=== PATIENT | female | born 1950 | race Caucasian/White ===

== ENCOUNTER 2019-02-05 08:10 | Inpatient (IN) ==
--- NOTE | 2019-01-07 14:54 | PAT Medication Instructions ---
Medication Instructions Date of Service January 07, 2019 Home Medications Pro Air 1 puff INHALATION UD PRN alendronate [Fosamax] 70 mg PO WK alprazolam [Xanax] 0.25 mg PO BID cyanocobalamin (vitamin B-12) [Vitamin B-12] 1,000 mcg PO QAM duloxetine [Cymbalta] 60 mg PO HS furosemide 40 mg PO QAM lovastatin 20 mg PO HS pramipexole [Mirapex] 1 mg PO QAM pramipexole [Mirapex] 2 mg PO HS spironolactone 25 mg PO QAM Continue as directed alendronate [Fosamax] 70 mg PO WK STOP taking 24 hours before surgery pramipexole [Mirapex] 1 mg PO QAM pramipexole [Mirapex] 2 mg PO HS DO NOT take the morning of surgery cyanocobalamin (vitamin B-12) [Vitamin B-12] 1,000 mcg PO QAM furosemide 40 mg PO QAM spironolactone 25 mg PO QAM Take morning of surgery With a small sip of water, OTHERWISE NOTHING TO EAT OR DRINK AFTER MIDNIGHT: Pro Air 1 puff INHALATION UD PRN (if needed) alprazolam [Xanax] 0.25 mg PO BID Take evening before surgery Pro Air 1 puff INHALATION UD PRN (if needed) alprazolam [Xanax] 0.25 mg PO BID duloxetine [Cymbalta] 60 mg PO HS lovastatin 20 mg PO HS Other Notes If you have any questions please call us at [phone] or [phone] or [phone] or [phone]
--- NOTE | 2019-01-08 12:47 | Anesthesiology Consultation ---
Date of Service January 08, 2019 Assessment & Plan (1) Encounter for pre-operative examination: Cardio: 01/14/19: "There is no contraindication to her proceeding from a cardiac perspective and she would be considered low to intermediate risk." Chart Review Chart Review: Acceptable Risk for Surgery (pending surgeon-ordered PCP clearance scheduled 01/21 (MAXWELL Morales)) and Patient seen in Pre Admission Testing Teaching & Discussion Pre-Anesthesia Teaching/Discussion Notes: Instructed NPO after midnight before surgery,except medications with 15 cc of water. Medication instructions provided according to the PAT guidelines. History Surgery Operation Date: 02/05/19 09:15 Proposed Procedures p Left Total Knee Arthroplasty - Tom Barragan, Height/Weight Height: 5 ft 3 in Weight: 94.7 kg Allergies Allergy/AdvReac Type Severity Reaction Status Date / Time latex Allergy Unknown BURNING, Verified 01/08/19 14:36 PRURITIS oxycodone Allergy Unknown PRURITIS Verified 01/08/19 14:36 Medications Home Medications Medication Instructions Recorded Confirmed Last Taken Pro Air 1 puff INHALATION UD PRN 01/01/19 01/01/19 Unknown alendronate [Fosamax] 70 mg PO WK 01/01/19 01/01/19 12/30/18 alprazolam [Xanax] 0.25 mg PO BID 01/01/19 01/01/19 01/01/19 cyanocobalamin (vitamin B-12) 1,000 mcg PO QAM 01/01/19 01/01/19 01/01/19 [Vitamin B-12] duloxetine [Cymbalta] 60 mg PO HS 01/01/19 01/01/19 12/31/18 furosemide 40 mg PO QAM 01/01/19 01/01/19 01/01/19 lovastatin 20 mg PO HS 01/01/19 01/01/19 12/31/18 pramipexole [Mirapex] 1 mg PO QAM 01/01/19 01/01/19 01/01/19 pramipexole [Mirapex] 2 mg PO HS 01/01/19 01/01/19 12/31/18 spironolactone 25 mg PO QAM 01/01/19 01/01/19 01/01/19 Past Medical History Medical History Obesity CAD (coronary artery disease) non-obstructive CAD by 2011 cardiac cath Age related osteoporosis Anxiety COPD (chronic obstructive pulmonary disease) High cholesterol Restless leg syndrome Thyroid nodule under surveillance Exercise / Class Metabolic Activity II 4-5 Yardwork/Stairs/Walk up hill (+ knee pain) Past Family History Family History Mother Family history of lung cancer Past Surgical History Surgical History History of ankle surgery right (2/2 crush injury) with multiple revisions History of arthroscopy of left knee History of cardiac cath 4+ years ago= non-obstructive CAD; no stents History of carpal tunnel surgery of left wrist History of carpal tunnel surgery of right wrist History of cholecystectomy History of colonoscopy History of hysterectomy History of lumbar fusion AND REVISION History of neck surgery CERVICAL SPINE FUSED History of toe surgery RIGHT HAMMER TOE AND BUNION REPAIR History of toe surgery left foot "nerve" surgery Status post insertion of spinal cord stimulator Patient will bring remote AM DOS/OR made aware Past Anesthesia History No Hx of Anesthesia Complications and No Family Hx of Anesthesia Complications Patient anxious RE: anesthesia History of PONV No Hx of PONV and No Hx of Motion Sickness Social History Smoking Status: Current every day smoker tobacco type: cigarettes Smoking cigarettes per day: 0.5 PPD x 30+ years Do You Dip or Chew Tobacco: No Hx Alcohol Use: No Hx Substance Use: No substance use type: does not use Review of Systems Patient denies chest pain, shortness of breath, dyspnea on exertion, reflux, cough, wheezing, palpitations. Physical Exam Vital Signs VITALS BP 111/68 P 73 TEMP 98.3 SP02 93%RA RESP 20 PHYSICAL Full neck and c-spine range of motion. Full TMJ range of motion. TMD 4 finger breaths Mallampati Score 2 Dentition: edentulous, full dentures upper/lower Lungs: clear throughout to auscultation Cardiac: regular rate and rhythm, no murmurs noted Spine: normal Carotid arteries: negative bruit Extremities: no edema Testing Laboratory Results PT 9.8 Seconds (9.0-12.0) 01/08/19 13:05 INR 1.0 (0.9-1.1) 01/08/19 13:05 APTT 27.5 Seconds (21.0-31.0) 01/08/19 13:05 Hemoglobin A1c 6.2 % (4.5-5.6) H 01/08/19 13:05 Urine Color Yellow 01/08/19 13:05 Urine Appearance Clear (Clear) 01/08/19 13:05 Urine pH 6.0 (4.5-7.5) 01/08/19 13:05 Ur Specific Warren 1.013 (1.000-1.030) 01/08/19 13:05 Urine Protein Negative (Negative) 01/08/19 13:05 Urine Glucose (UA) Negative (Negative) 01/08/19 13:05 Urine Ketones Negative (Negative) 01/08/19 13:05 Urine Nitrite Negative (Negative) 01/08/19 13:05 Ur Leukocyte Esterase Negative (Negative) 01/08/19 13:05 Blood Type O Positive 01/08/19 13:05 Antibody Screen NEGATIVE 01/08/19 13:05 01/08/19 13:05 Urine Culture - Final Urine,Clean Catch Lactobacillus species 12/17/18 WBC 9.1 H/H 12.9/38.6 PLATELETS 287 SODIUM 138 POTASSIUM 4.1 CHLORIDE 103 CO2 30 BUN 20 CREATININE 0.8 GLUCOSE 128 Electrocardiogram Date: 01/08/19 Findings: + NSR @ (70) Chest X-Ray Date: 01/08/19 The PA view is degraded by apical lordotic positioning. The heart is top normal in size and there is atherosclerotic calcification of the thoracic aorta. Emphysema and chronic interstitial thickening are similar to previous. No airspace consolidation or pleural effusion is identified. There is bibasilar scarring/atelectasis. Fusion hardware is noted in the lower cervical spine. Intrathecal leads project over the lower thoracic region. Surgical clips are seen in the upper abdomen. Emphysematous change with no active disease in the chest. Echocardiogram Date: 04/02/18 "LVEF 57%, no segmental wall motion abnormalities, overall normal valvular function." per 01/14/19 cardio office visit note; unable to obtain official report Stress Test Date: 10/23/13 Type: DSE Stress ECHO negative for inducible ischemia. Equivocal EKG changes. Occasional PVC's with infusion. LVEF 60-65%. Grade I DD. Mild AV sclerosis. No significant valvular disease. 104% MPHR.
--- NOTE | 2019-01-08 13:52 | XRay Report ---
TWO VIEW CHEST CLINICAL HISTORY: Preoperative examination. FINDINGS: PA and lateral chest radiographs are compared to study dated 10/21/2014. The PA view is degr aded by apical lordotic positioning. The heart is top normal in size and there is atherosclerotic suresh cification of the thoracic aorta. Emphysema and chronic interstitial thickening are similar to previo us. No airspace consolidation or pleural effusion is identified. There is bibasilar scarring/atelecta sis. There is no pneumothorax. The skeletal structures are osteopenic. The bony thorax appears intact . Fusion hardware is noted in the lower cervical spine. Intrathecal leads project over the lower thor acic region. Surgical clips are seen in the upper abdomen. IMPRESSION: Emphysematous change with no active disease in the chest. Electronically signed by: Conrado Alfonso M.D. 01/08/2019 1:50 PM
[2019-01-08 14:50] LABS: Partial Thromboplastin Time 27.5 Seconds (21.0-31.0); Prothrombin Time 9.8 Seconds (9.0-12.0)
[2019-01-08 15:05] LABS: Appearance Urine Clear (Clear); Bilirubin Urine Negative (Negative); Blood Urine Negative (Negative); Color Urine Yellow; Glucose Urine UA Negative (Negative); Ketones Urine Negative (Negative); Leukocyte Esterase Urine Negative (Negative); Nitrite Urine Negative (Negative); Protein Urine Negative (Negative); Specific Gravity Urine 1.013 (1.000-1.030); Urobilinogen Urine Negative (Negative)
[2019-01-09 05:58] LABS: Estimated Average Glucose 131 mg/dl; Hemoglobin A1C 6.2 % (4.5-5.6)
--- NOTE | 2019-02-04 18:08 | History & Physical Report ---
Date of Service February 04, 2019 Assessment & Plan (1) Degenerative joint disease of left knee: I have indicated the patient for left total knee replacement. The risks, benefits and complications of surgery were explained to the patient which include but not limited to infection, acute blood loss, DVT/PE, injury to nerves, vessels, bone, soft tissue, arthrofibrosis, chronic pain, failure of the prosthesis, knee dislocation, leg length discrepancy, need for additional surgery, cardiac and pulmonary events and . The patient wished to proceed with surgery and informed consent was obtained at this time. We will plan for ASA BID post-operatively for DVT prophylaxis. Upon discharge the patient will be discharged home with home health services. Appropriate clearances by PCP were obtained. History of Present Illness Chief Complaint: Left knee pain/djd Primary Care Provider: Tucker Morales The patient is a 68 year old female who presents with complaints of severe left knee pain and DJD. The patient has failed outpatient conservative treatments to this point which included NSAIDs, corticosteroid and RANGEL injections, PT and a h ome exercise/walking program. The patient's pain and limited function have progressed to the point where they severely hinder their activities of daily living and they no longer tolerate exercise programs. They are requesting to proceed with total knee replacement surgery. Allergies Allergy/AdvReac Type Severity Reaction Status Date / Time oxycodone Allergy Severe PRURITIS Verified 02/05/19 09:22 latex Allergy Unknown BURNING, Verified 02/05/19 09:22 PRURITIS Home Medications Home Medications Medication Instructions Recorded Confirmed Type Pro Air 1 puff INHALATION UD PRN 01/01/19 02/05/19 History alendronate [Fosamax] 70 mg PO WK 01/01/19 01/01/19 History alprazolam [Xanax] 0.25 mg PO BID 01/01/19 01/01/19 History cyanocobalamin (vitamin B-12) 1,000 mcg PO QAM 01/01/19 01/01/19 History [Vitamin B-12] duloxetine [Cymbalta] 60 mg PO HS 01/01/19 01/01/19 History furosemide 40 mg PO QAM 01/01/19 01/01/19 History lovastatin 20 mg PO HS 01/01/19 01/01/19 History pramipexole [Mirapex] 1 mg PO QAM 01/01/19 01/01/19 History pramipexole [Mirapex] 2 mg PO HS 01/01/19 01/01/19 History spironolactone 25 mg PO QAM 01/01/19 01/01/19 History Past Med/Surg History Medical History Obesity CAD (coronary artery disease) non-obstructive CAD by 2011 cardiac cath Age related osteoporosis Anxiety COPD (chronic obstructive pulmonary disease) High cholesterol Restless leg syndrome Thyroid nodule under surveillance Surgical History History of ankle surgery left (2/2 crush injury) with multiple revisions History of arthroscopy of left knee History of cardiac cath 4+ years ago= non-obstructive CAD; no stents History of carpal tunnel surgery of left wrist History of carpal tunnel surgery of right wrist History of cholecystectomy History of colonoscopy History of hysterectomy History of lumbar fusion AND REVISION History of neck surgery CERVICAL SPINE FUSED History of toe surgery RIGHT HAMMER TOE AND BUNION REPAIR History of toe surgery left foot "nerve" surgery Status post insertion of spinal cord stimulator Patient will bring remote AM DOS/OR made aware Family History Mother Family history of lung cancer Social History Preferred Language: Uzbek Communication Ability: Effective Antique Dealer Required: No Beliefs That Will Affect Care: None Current Living Situation: Alone Other Information That Helps Us Care for You: No Feels Safe at Home: Yes Smoking Status: Current every day smoker Tobacco Type: cigarettes ; Cigarettes Per Day: 0.5 PPD x 30+ years ; Do You Dip or Chew Tobacco: No ; Hx Alcohol Use: No Hx Substance Use: No Review of Systems Review of Systems: All systems reviewed & are unremarkable except as noted in HPI & below Constitutional: as per Subjective / HPI Physical Exam Physical Exam: LLE NVSI +EHL/FHL/TA/GS SILT grossly, +2 DP pulse, compartments soft NT, limited painful ROM 0-120, +crepitus. Constitutional: WD/WN, vitals as above Eyes: PERRL, conjunctivae normal, anicteric sclerae ENMT: external ear and nose normal, oropharynx normal Neck: trachea midline, no thyromegaly Respiratory: normal respiratory effort, lungs clear to auscultation Cardiovascular: RRR, no murmur, no edema Gastrointestinal (Abdomen): normal bowel sounds, soft, nontender, no hepatosplenomegaly Musculoskeletal: no cyanosis or clubbing, extremities motor strength 5/5 Skin: no rashes, warm and dry Neurologic: patellar DTR's 2+ bilat, sensation intact Psychiatric: A+Ox3, euthymic affect Lymphatic: no cervical or axillary lymphadenopathy Results & Data Diagnostic Findings Multiple views of the knee demonstrates severe tricompartmental DJD with complete loss of the medial and narrowing of the patellowfemoral joint space. +osteophytes, +sclerosis, +subchondral cysts.
[~2019-02-05 08:10] MED LIST: ACETAMINOPHEN 500 MG TAB PO SCH; BUPIVACAINE 0.5 % 5 MG/1 ML PF 10ML VIAL ONE; CEFAZOLIN 2000MG 2,000 MG/15 ML SYR IV SCH; CeleBREX 200 MG CAP PO SCH; FAMOTIDINE 20 MG TAB PO SCH; GABAPENTIN 300 MG CAP PO SCH; LR 500ML BOLUS, THEN 15ML/HR IV SCH; METOCLOPRAMIDE HCL 10 MG TABLET PO SCH; ROPIVACAINE 0.5% 5 MG/ML 30 ML VIAL ONE; ROPIVACAINE 0.5% HCL/PF 150 MG, BUPIVACAINE 0.5% MPF 30 ML, EPINEPHrine 30MG/30ML (OR U... INFIL SCH; TRANEXAMIC ACID 1,000 MG **IV Intra-op IV SCH; TRANEXAMIC ACID 1,000 MG **IV Pre-op IV SCH; dexAMETHasone 4 MG TAB PO SCH
[2019-02-05] MEDS ORDERED: MIDAZOLAM HCL 1 MG/ML 2ML VIAL ONE (09:55)
[2019-02-05] MEDS ORDERED: fentaNYL citrate 100 MCG/2 ML VIAL ONE ×2 (09:55→11:27)
[2019-02-05] MEDS ORDERED: ORTHO JOINT ANESTHETIC ONE (10:23)
[2019-02-05] MEDS ORDERED: BACITRACIN INJ 50,000 UNIT VIAL ONE (10:23)
[2019-02-05] MEDS ORDERED: NEOSTIGMINE METHYLSULFATE 5 MG/5 ML SYR ONE (10:51)
[2019-02-05] MEDS ORDERED: ROCURONIUM BROMIDE 10 MG/ML 5 ML VIAL ONE (10:51)
[2019-02-05] MEDS ORDERED: ONDANSETRON INJ 2 MG/ML 2 ML VIAL ONE (10:51)
[2019-02-05] MEDS ORDERED: PROPOFOL IV EMULSION 10 MG/ML 20 ML VIAL IV ONE (10:51)
[2019-02-05] MEDS ORDERED: LIDOCAINE HCL 2% 2 ML VIAL/AMP(20MG/ML) INFIL ONE (10:51)
[2019-02-05] MEDS ORDERED: GLYCOPYRROLATE 0.2 MG/ML VIAL ONE (10:51)
[2019-02-05] MEDS ORDERED: ATROPINE SULFATE 0.1 MG/ML 10ML SYR IV PRN (11:03)
[2019-02-05] MEDS ORDERED: ePHEDrine sulfate 50 MG/ML AMP IV PRN (11:03)
[2019-02-05] MEDS ORDERED: ONDANSETRON INJ 2 MG/ML 2 ML VIAL IV PRN ×2 (11:03→15:21)
[2019-02-05] MEDS ORDERED: fentaNYL citrate 100 MCG/2 ML VIAL IV PRN (11:03)
--- NOTE | 2019-02-05 11:26 | History & Physical Bridge Note ---
Date of Service February 05, 2019 History & Physical Bridge Note I have examined the patient, reviewed the History & Physical and in the interval since the performance of the History & Physical I have noted the following changes of clinical significance: no changes noted
[2019-02-05] MEDS ORDERED: HYDROmorphone INJ 2 MG/ML SYR/VIAL ONE (12:27)
[2019-02-05] MEDS ORDERED: ALBUT/IPRATROP 3MG/0.5MG NEB 3 ML VIAL INH PRN (12:57)
--- NOTE | 2019-02-05 13:37 | Post Operative Brief Note ---
Immediate Post Op Note v1 Date of Surgery February 05, 2019 Pre & Post Diagnosis Operation Date: 02/05/19 11:25 Pre-Op Diagnosis: LEFT KNEE OSTEOARTHRITIS Post-Op Diagnosis: LEFT KNEE OSTEOARTHRITIS Procedure Operation Date: 02/05/19 11:25 Actual Procedures p Left Total Knee Arthroplasty Cemented(Left) - Tom Barragan DO Surgeon Tom Barragan DO Stock Control Supervisor Amauri Osorio Estimated Blood Loss 50 Findings Consistent with Post-Op Diagnosis Fluids 700 cc LR Specimens Distal femor and proximal tibia bone fragments Anesthesia Type General Regional Complications none Disposition Disposition: Recovery Room Overlapping Procedure I was present for: the critical portions of procedure. I was immediately available: during the entire case. Back up surgeon: was not required during procedure.
[2019-02-05] MEDS ORDERED: ESMOLOL HCL INJ 10 MG/ML 10ML VIAL IV ONE (13:43)
--- NOTE | 2019-02-05 13:52 | Operative Report ---
Post Operative Report Pre & Post Diagnosis Operation Date: 02/05/19 11:25 Pre-Op Diagnosis: LEFT KNEE OSTEOARTHRITIS Post-Op Diagnosis: LEFT KNEE OSTEOARTHRITIS Procedure Operation Date: 02/05/19 11:25 Actual Procedures p Left Total Knee Arthroplasty Cemented(Left) - Tom Barragan DO Surgeon Tom Barragan DO Environmental Services Manager Amauri Osorio Estimated Blood Loss 50 Findings Consistent with Post-Op Diagnosis Fluids 700 cc LR Specimens Proximal tibia and distal femur bone fragments Anesthesia Type General Regional Complications none Disposition Disposition: Recovery Room Indications The patient is a 68-year-old female presents with long history of severe left knee tricompartmental DJD and failed outpatient conservative treatments including NSAIDs, bracing, injections and home walking/exercise program. The patient's symptoms have progressed to the point where it has been difficult to perform normal activities of daily living. I have indicated the patient for a left total knee arthroplasty, the risks and benefits and complications of the procedure include but are not limited to infection bleeding damage to bone, nerves, vessels, surrounding soft tissue, blood clots, loss of function, leg length discrepancy, dislocation, failure of the components, need for additional surgery and . The patient wished to proceed with surgery at this time and informed consent was obtained. Appropriate clearances were obtained. Description of Procedure COMPONENTS USED: Uri persona knee system: Femur size 9, Tibia size F tibial articulating surface 14 CPS, Patella 29 mm Following induction of general/regional anesthesia, a tourniquet was applied to the proximal aspect of the thigh and the patient's left leg was prepped and draped in the usual sterile manner. A timeout was performed, patient identified and site avelino confirmed. Appropriate pre-operative IV antibiotics were given. The limb was exsanguinated with an Esmarch bandage and tourniquet was inflated to 300 mmHg. A longitudinal midline incision was made over the anterior knee. Subcutaneous tissue was sharply dissected down to fascia. Electrocautery was used for hemostasis. Next a parapatellar arthrotomy was performed. Patella was everted and the knee was flexed. A Yañez retractor was used to expose the synovium above on the anterior aspect of the femur and removed down to bone. Next, the anterior fat pad was removed to aid in visualization. The medial face of the tibia was cleared of soft tissue first with a Bovie and a reed elevator. This tissue was retracted posteriorly using a blunt Hohmann. Next, the extra-medullary tibial cutting guide was placed to the anterior aspect of the tibia. The tibia resection level was set taking 2mm from the defective tibial condyle. Resection depth was once again confirmed with rubén wing. The medial and lateral collateral ligament was protected with two Hohmann retractors. The tibia guide was removed and proximal tibial bone fragment removed utilizing straight osteotome, electrocautery and Tom. Next, the distal femur intramedullary canal was accessed utilizing the step drill. The intramedullary distal femur cutting guide was placed into the canal and pinned into place. The distal femur was cut on the +0 5 degree setting. Next the cutting guide was removed and the femur was sized. Care was taken to ensure appropriate barber stylist all rotation and 3 degree holes were drilled. A size 9 4-in-1 cutting block was placed on the distal end of the femur and secured into place with two short headed screws. Two bent Hohmann retractors were placed to protect the medial and lateral collateral ligaments. The oscillating saw was used to cut anterior, posterior, anterior chamfer and posterior chamfer. The four and one cutting block was removed and bone fragments excised. Laminar pi/senior research associate was placed laterally and the ACL and PCL were removed followed by the medial meniscus and posterior medial osteophytes. Aquamantys was utilized for any posterior medial bleeders and Orthomix injected into the posterior medial capsule. A laminar pi/senior research associate was then placed in the medial compartment and the lateral meniscus and posterior osteophytes were removed. Aquamantys was utilized for any posterior lateral bleeders and Orthomix injected into the posterior lateral capsule. Next, drop nusrat and spacer block were placed with the leg in flexion and extension to assess alignment and flexion/extension gaps. Next, the proximal tibia was assessed and two bent Hohmans were placed medial and lateral to aid in visualization. The appropriate tibia size and rotation was selected and a size F tibial plate was pinned into place with appropriate rotation. Preparation of the tibia was completed utilizing the matching tibial drill and broach. I then turned my attention back to the distal femur in a trial femoral component was impacted into place. Appropriate femoral width was assessed and selected. Next the femur PS box cut guide was placed and cut made with the reciprocal saw and the PS box provisional placed. A trial size 12 CPS tibia articular tray was placed and varus-valgus balance assessed in 0 degrees of extension and 30, 60 and 90 degrees of flexion. A final tibial articular surface size 14 CPS was chosen. Assess was gained to the patella and caliper utilized to measure width. The patella reamer was utilized and remaining bone removed with oscillating saw. A size 29 patella button was selected and the patella pegs drilled. Trial patella button was placed and tracking was assessed. The knee was found to be well balanced, well aligned with excellent patella tracking. The trials were removed and final components were obtained and assembled. The knee was irrigated copiously with sterile saline solution mixed with bacitracin. Access to the proximal tibia was once again obtained utilizing to the Hohmans and the proximal tibia and distal femur were dried with lap sponges. The final components were cemented into place and all excess cement was removed. A trial tibial articular surface was placed while cemented hardened. Knee stability was once again assessed and the final component inserted. A Betadine soak was performed. After 3 minutes, the hip was once more irrigated with copious sterile saline solution with bacitracin. The knee was injected with the remaining Orthomix which includes a combination of Ropivicaine 0.5% 150mg, Bupivicaine 0.5%/Epinephrine 1:200,000 30ml, Toradol 30mg, Dexamethasone 4mg, Ketamine 10mg, Clonidine 100mcg and NSS 30ml solution. The capsulotomy was closed with #1 Vicryl followed by subcutaneous closure with 2-0 Vicryl suture and a 3-0 V-lock suture. Skin closure was performed using Prineo dressing followed by Tab, 4 x 4s and franck wrap. Tourniquet was deflated at 107 minutes. The patient tolerated the procedure well and was taken to the PACU in stable condition. Due to the complex nature of the procedure, the entire surgery was performed with the operational assistance of Amauri Osorio PA-C. The assistant corporation counsel, under direct supervision, was involved in the actual performance of all aspects of the surgical procedure including patient positioning, hemostasis, tissue retraction, instrument management and wound closure. I attest to the content of the Intraoperative Record and any orders documented therein. Any exceptions are noted below.
--- NOTE | 2019-02-05 14:48 | XRay Report ---
XR knee LT 2V routine CLINICAL HISTORY: 68 years-old Female presenting with Surgical Post Op. TECHNIQUE: Frontal and lateral views of the left knee were obtained. COMPARISON: None. FINDINGS: Postsurgical changes of total left knee arthroplasty with patellar resurfacing. Expected intra-articu lar and soft tissue emphysema. No periprosthetic fracture. Trace lucency subjacent to the lateral tib ial plateau component measuring less than 2 mm, which may be within the expected range of normal and the postsurgical setting. No malalignment. IMPRESSION: Postsurgical changes of total left knee arthroplasty with patellar resurfacing. Electronically signed by: Gavino Le M.D. 02/05/2019 2:46 PM
--- NOTE | 2019-02-05 14:58 | Anesthesiology Progress Note ---
Date of Service February 05, 2019 Anesthesia Post Procedure Vital Signs Vital Signs: Temp Pulse Pulse Resp BP Pulse Ox 02/05/19 14:45 36.6 C 56 L 20 110/62 95 02/05/19 14:35 36.3 C L 63 13 120/67 96 02/05/19 14:25 36.3 C L 59 L 10 L 112/57 L 90 02/05/19 14:17 36.3 C L 74 14 114/69 96 02/05/19 09:26 36.8 C 88 18 109/57 L 98 Pain Intensity Left Knee: Pain Intensity: 0 Transfer of Care Handoff Completed per policy Notes Mental Status: alert / awake / arousable and participated in evaluation Patient Amnestic to Procedure: Yes Nausea / Vomiting: adequately controlled Pain: adequately controlled Airway Patency, RR, SpO2: stable & adequate BP & HR: stable & adequate Hydration State: stable & adequate Anesthetic Complications: no major complications apparent and Pt Satisfied with anesthetic care
[2019-02-05] MEDS ORDERED: HYDROmorphone INJ 0.5 MG/0.5 ML SYR IV PRN (15:21)
[2019-02-05] MEDS ORDERED: METOCLOPRAMIDE HCL INJ 5 MG/ML 2 ML VIAL IV PRN (15:21)
[2019-02-05] MEDS ORDERED: OXYCODONE HCL IR 5 MG TAB (IMMEDIATE RELEASE) PO PRN (15:21)
[2019-02-05] MEDS ORDERED: NALOXONE HCL 0.4 MG/1 ML VIAL/CARP IV PRN (15:21)
[2019-02-05] MEDS ORDERED: BISACODYL 10 MG SUPP PR PRN (15:21)
[2019-02-05] MEDS ORDERED: MAGNESIUM HYDROXIDE SUSP 30 ML UDC PO PRN (15:21)
[2019-02-05] MEDS ORDERED: ALBUTEROL HFA 8 GM INHALER INH PRN (15:45)
[2019-02-05] MEDS: SODIUM CHLORIDE 0.9% 1000ML 1,000 ML IV SCH ×2 (16:15→23:35)
[2019-02-05] MEDS: KETOROLAC TROMETHAMINE 15 MG/ML VIAL IV SCH ×2 (16:17→21:24)
[2019-02-05] MEDS: ACETAMINOPHEN 500 MG TAB PO SCH ×2 (16:17→21:23)
--- NOTE | 2019-02-05 18:14 | Orthopedic Progress Note ---
Date of Service February 05, 2019 Assessment & Plan (1) Degenerative joint disease of left knee: s/p L TKA -ancef x 24 -DVT ppx: SCDs, TEDs, ASA BID -WBAT LLE -PT/OT -XR L knee demonstrates a well aligned well fixed prosthesis without fracture/dislocation -am labs -DC planning - home with HH Subjective Post Operative Progress Note Patient seen sitting up in bed, comfortable, denies complaints, pain well controlled, no acute issues. Review of Systems Review of Systems: All systems reviewed & are unremarkable except as noted in HPI & below Constitutional: as per Subjective / HPI Physical Exam Physical Exam: LLE NVSI +EHL/FHL/TA/GS SILT grossly, +2 DP pulse, compartments soft NT, dressing cdi. Constitutional: WD/WN, vitals as above Results & Data Vital Signs (Past 12 Hours) Vital Signs Temp Pulse Pulse Pulse Resp BP Pulse Ox 02/05/19 17:09 36.6 C 57 L 16 97/60 L 96 02/05/19 16:06 36.4 C L 61 16 93/58 L 93 02/05/19 15:43 48 L 16 100/63 93 02/05/19 15:10 36.7 C 57 L 18 102/64 95 02/05/19 14:55 36.6 C 60 15 114/64 95 02/05/19 14:45 36.6 C 56 L 20 110/62 95 02/05/19 14:35 36.3 C L 63 13 120/67 96 02/05/19 14:25 36.3 C L 59 L 10 L 112/57 L 90 02/05/19 14:17 36.3 C L 74 14 114/69 96 02/05/19 09:26 36.8 C 88 18 109/57 L 98
[2019-02-05] MEDS: CEFAZOLIN 2000MG 2,000 MG/15 ML SYR IV SCH (20:24)
[2019-02-05] MEDS ORDERED: PRAMIPEXOLE DIHYDROCHLO 0.5 MG TAB PO SCH (21:00)
[2019-02-05] MEDS ORDERED: LOVASTATIN 20 MG TAB PO SCH (21:00)
[2019-02-05] MEDS ORDERED: DULOXETINE HCL 60 MG CAP PO SCH (21:00)
[2019-02-05] MEDS ORDERED: SENNA 8.6 MG TAB PO SCH (21:00)
[2019-02-05] MEDS: DOCUSATE SODIUM 100 MG CAP PO SCH (21:24)
[2019-02-05] MEDS: ALPRAZolam 0.25 MG TABLET PO SCH (21:29)
[2019-02-06] MEDS: KETOROLAC TROMETHAMINE 15 MG/ML VIAL IV SCH ×2 (03:07→10:25)
[2019-02-06] MEDS: CEFAZOLIN 2000MG 2,000 MG/15 ML SYR IV SCH (03:07)
[2019-02-06] MEDS: ACETAMINOPHEN 500 MG TAB PO SCH ×2 (05:44→14:03)
[2019-02-06 07:09] LABS: Hematocrit (blood only) 35.5 % (37-47); Hemoglobin 11.5 g/dL (12.0-16.0); Mean Corpuscular Hgb Conc 32.4 g/dL (32-36); Mean Corpuscular Volume 92.9 fL (80-100); Mean Platelet Volume 9.6 fL (7.4-10.4); Platelet Count 245 K/uL (130-400); RDW Coefficient of Variation 15.2 % (11.5-14.5); RDW Standard Deviation 51.9 fL (36.4-46.3); Red Blood Count 3.82 M/uL (4.2-5.4); White Blood Count 15.43 K/uL (4.8-10.8)
[2019-02-06 07:40] LABS: Calcium 8.2 mg/dl (8.5-10.1); Est GFR (African American) 71.4; Est GFR (Non-African American) 61.6; Potassium 3.8 mmol/L (3.5-5.1)
[2019-02-06] MEDS: DOCUSATE SODIUM 100 MG CAP PO SCH (08:37)
[2019-02-06] MEDS: ALPRAZolam 0.25 MG TABLET PO SCH (08:39)
[2019-02-06] MEDS ORDERED: SPIRONOLACTONE 25 MG TAB PO SCH (09:00)
[2019-02-06] MEDS ORDERED: MULTIVITAMIN TAB PO SCH (09:00)
[2019-02-06] MEDS ORDERED: ASPIRIN 325 MG ECTAB PO SCH (09:00)
[2019-02-06] MEDS ORDERED: FUROSEMIDE 40 MG TAB PO SCH (09:00)
[2019-02-06] MEDS ORDERED: PRAMIPEXOLE DIHYDROCHLO 0.5 MG TAB PO SCH (09:00)
--- NOTE | 2019-02-06 10:03 | Anesthesiology Progress Note ---
Date of Service February 06, 2019 Anesthesia Post Procedure Vital Signs Vital Signs: Temp Pulse Pulse Pulse Resp BP BP 02/06/19 03:09 36.6 C 54 L 16 106/65 02/05/19 23:22 36.9 C 53 L 14 99/49 L 88/52 L 02/05/19 18:51 36.9 C 71 16 97/60 L 02/05/19 17:09 36.6 C 57 L 16 97/60 L 02/05/19 16:06 36.4 C L 61 16 93/58 L 02/05/19 15:43 48 L 16 100/63 02/05/19 15:10 36.7 C 57 L 18 102/64 02/05/19 14:55 36.6 C 60 15 114/64 02/05/19 14:45 36.6 C 56 L 20 110/62 02/05/19 14:35 36.3 C L 63 13 120/67 02/05/19 14:25 36.3 C L 59 L 10 L 112/57 L 02/05/19 14:17 36.3 C L 74 14 114/69 Pulse Ox 02/06/19 03:09 93 02/05/19 23:22 91 02/05/19 18:51 94 02/05/19 17:09 96 02/05/19 16:06 93 02/05/19 15:43 93 02/05/19 15:10 95 02/05/19 14:55 95 02/05/19 14:45 95 02/05/19 14:35 96 02/05/19 14:25 90 02/05/19 14:17 96 Pain Intensity Left Knee: Pain Intensity: 0 Notes Mental Status: alert / awake / arousable and participated in evaluation Nausea / Vomiting: adequately controlled Pain: adequately controlled Airway Patency, RR, SpO2: stable & adequate BP & HR: stable & adequate Hydration State: stable & adequate
--- NOTE | 2019-02-06 14:02 | Orthopedic Progress Note ---
Date of Service February 06, 2019 Assessment & Plan (1) Degenerative joint disease of left knee: s/p L TKA POD#1 -ancef x 24 -DVT ppx: SCDs, TEDs, ASA BID -WBAT LLE -PT/OT -XR L knee demonstrates a well aligned well fixed prosthesis without fracture/dislocation -am labs - hgb 11.5 -DC planning - home with HH Subjective Post Operative Progress Note Patient seen sitting up in bed, comfortable, denies complaints, pain well controlled, no acute issues. Review of Systems Review of Systems: All systems reviewed & are unremarkable except as noted in HPI & below Constitutional: as per Subjective / HPI Results & Data Vital Signs (Past 12 Hours) Vital Signs Temp Pulse Resp BP BP Pulse Ox 02/06/19 12:04 36.9 C 55 L 18 97/63 L 93 02/06/19 03:09 36.6 C 54 L 16 106/65 93 Laboratory Results 02/06/19 02/06/19 02/06/19 Range/Units 06:54 06:54 06:54 WBC 15.43 H (4.8-10.8) K/uL RBC 3.82 L (4.2-5.4) M/uL Hgb 11.5 L (12.0-16.0) g/dL Hct 35.5 L (37-47) % MCV 92.9 (80-100) fL MCH 30.1 (25-34) pg MCHC 32.4 (32-36) g/dL RDW Std Deviation 51.9 H (36.4-46.3) fL RDW Coeff of Rosa 15.2 H (11.5-14.5) % Plt Count 245 (130-400) K/uL MPV 9.6 (7.4-10.4) fL Sodium 137 (136-145) mmol/L Potassium 3.8 (3.5-5.1) mmol/L Chloride 104 (98-107) mmol/L Carbon Dioxide 27 (21-32) mmol/L Anion Gap 6.0 (3-11) BUN 22 H (7-18) mg/dl Creatinine 0.96 (0.6-1.2) mg/dl Est Cr Clr Drug Dosing 61.0 ml/min Est GFR ( Amer) 71.4 Est GFR (Non-Af Amer) 61.6 BUN/Creatinine Ratio 23.0 H (10-20) Glucose 160 H (70-99) mg/dl Calcium 8.2 L (8.5-10.1) mg/dl Hepatitis C Ab Screen Neg (Neg)
[2019-02-06] MEDS ORDERED: CeleBREX 200 MG CAP PO SCH (21:00)
--- NOTE | 2019-02-06 21:26 | Discharge Summary ---
Date of Service February 06, 2019 Admission HPI Per Admitting Provider The patient is a 68 year old female who presents with complaints of severe left knee pain and DJD. The patient has failed outpatient conservative treatments to this point which included NSAIDs, corticosteroid and RANGEL injections, PT and a home exercise/walking program. The patient's pain and limited function have progressed to the point where they severely hinder their activities of daily living and they no longer tolerate exercise programs. They are requesting to proceed with total knee replacement surgery. Principal Diagnosis Left total knee replacement Discharge Exam LLE NVSI +EHL/FHL/TA/GS SILT grossly, +2 DP pulse, compartments soft NT, dressing cdi. Constitutional WD/WN, vitals as above Discharge Data Allergies Allergy/AdvReac Type Severity Reaction Status Date / Time oxycodone Allergy Severe PRURITIS Verified 02/05/19 09:22 latex Allergy Unknown BURNING, Verified 02/05/19 09:22 PRURITIS Consultations 02/05/19 15:21 Consult Case Management - Discharge Planning Routine Procedures Performed Operation Date: 02/05/19 11:25 Actual Procedures p Left Total Knee Arthroplasty Cemented(Left) - Tom Barragan DO Ordered Studies 02/05/19 05:00 US - OR guided needle placemen Routine Hospital Course (1) Degenerative joint disease of left knee: The patient is a 68 -year-old female who presents with long standing history of severe left DJD and failed outpatient conservative treatments including NSAIDs, bracing, injections and home walking/exercise program. The patient's symptoms have progressed to the point where it has been difficult to perform even normal activities of daily living. I indicated the patient for a left total knee arthroplasty, the risks, benefits and complications of the procedure include but not limited to infection, bleeding, damage to bone, nerves, vessels, surrounding soft tissue, may develop blood clots, loss of function, leg length discrepancy, dislocation, failure of the components, loosening of the components, the need for additional surgery and . The patient wished to proceed with surgery at this time and informed consent was obtained. Hospital Course: On 02/05/19 the patient was taken to the operating room, adequate anesthesia administered and underwent a left total knee arthroplasty. The patient tolerated the procedure well and was taken to the PACU in stable condition. Post-operatively the patient was started on a DVT ppx medication and given appropriate IV antibiotics. Consults were placed to physical therapy, occupa tional therapy and case management. On POD#1, the patient did well overnight and their pain was well controlled. Labs were drawn and the Hgb was 11.5. The patient progressed well with PT. Dressings were changed at this time and the incision was clean, dry and intact. The patients hospital stay was relatively uneventful and they were deemed stable by the orthopedic team and consultants to be discharged home with HH on 02/06/19. Discharge Instructions: Upon discharge the patient may weight bear as tolerates through their operative extremity. They were instructed to keep the incision clean and dry at all times. The patient may shower but should not submerge the incision, avoid bathing, pools and hot tubes. The patient was given a script for pain medication and should take as instructed. The patient was given a script for DVT ppx ASA 325mg BID and should take as directed. The patient was instructed to not drive or travel for long distances until cleared to do so. If the patie nt develops any symptoms of fevers, chills, nausea, vomiting, increased redness, swelling, pain or drainage from the surgical site, they should notify the office and/or proceed to the nearest emergency room. The patient should follow up in 10-14 days after surgery for their routine post-operative follow-up appointment and should call the office to confirm the date and time. s/p L TKA POD#1 -ancef x 24 -DVT ppx: SCDs, TEDs, ASA BID -WBAT LLE -PT/OT -XR L knee demonstrates a well aligned well fixed prosthesis without fracture/dislocation -am labs - hgb 11.5 -DC planning - home with HH Total Time Total Time Spent Total Time Spent (In Minutes): 30 minutes Total Time Includes: Examination of the Patient, Discharge Planning, Medication Reconciliation and Communication With Other Providers Discharge Plan Discharge Items Patient Disposition: Home - Home Health Services Reason For Visit: LEFT KNEE OSTEOARTHRITIS Discharge Diagnosis: Left total knee replacement Condition: Good Discharge Goals: Decrease discomfort, Improve function, Increase independence and Therapeutic intervention Activity: Per 'Additional Instructions' section Lifting: Wait until after follow-up appointment Bathing Comment: No bathing, pools or hot tubs Sexual Activity: Wait until after follow-up appointment Exercise/Sports: Wait until after follow-up appointment Driving/Machine Use Comment: No driving till cleared by your surgeon Weightbearing: Left weightbearing Non-emergency contact: Primary Care Provider and Surgeon Call non-emergency contact if: you have any medication questions, your symptoms worsen, your pain is not controlled, your pain is worsening, your pain is unusual for you, your pain is concerning for you, you have a fever, your temperature is above 101, your wound has increased redness, your wound has increased drainage and your wound pain has increased Follow-up/Referrals: Tucker Morales [Primary Care Provider] - Diet: Regular Addtl Provider Instructions: ACTIVITY RECOMMENDATIONS: SELF CARE INSTRUCTIONS AFTER TOTAL KNEE REPLACEMENT A. You may need to continue a physical therapy program after discharge from the hospital. There are several options available to you. Your doctor will assist you in selecting the best one for you. 1. An out-patient facility 2 to 3 times a week for therapy or home therapy. 2. Continue working on all exercises taught to you in the hospital. Your goals should be to increase bending of your knee to 90 degrees and beyond and to fully straighten your knee. B. You may progress at your own pace from walking with a walker or crutches to a cane; then to no assistive devices. C. Make walking a part of your daily routine. Be up as much as comfortable with rest periods throughout the day. Rest with leg elevation is very important. Use the ice wrap frequently for the first 3-4 weeks. D. There are no restrictions on activities. You may ride in a car, shop, participate in import specialist and all social activities. E. Wear the long elastic stockings (CHAS hose) 20 hours a day for 2 weeks after surgery. They can be removed several times a day for laundering and for a bath. F. You may shower, no tub baths until cleared by your doctor. SPECIAL CARE INSTRUCTIONS: VERY IMPORTANT TO READ AND REVIEW A. There are a few signs you need to watch for after you are home. Call [facility] if you notice any of the followin. Increased severe knee pain. Some pain is expected especially when you exercise. 2. Increased swelling in your leg or knee; pain or swelling of the calf muscle in either lower leg. 3. Any fluid drainage from the incision. 4. Shortness of breath or chest pain. B. Please call [facility] at if you have any concerns or questions about your operation or recovery. The doctor or his nurse will return your call promptly. C. You must take antibiotics before dental work, bladder, bowel or other surgery. Your doctor will provide you with a permanent care to carry describing this precaution. IMPORTANT: * REMEMBER TO TAKE ASPIRIN, 325 MG, TWICE DAILY FOR 4 WEEKS UNLESS OTHERWISE DIRECTED. THIS IS YOUR BLOOD THINNER. * HIGH RISK PATIENTS MAY BE PRESCRIBED A STRONGER BLOOD THINNER. THIS WILL BE PROVIDED AT DISCHARGE. * CALL IF INCREASED PAIN, REDNESS, DRAINAGE OR FEVER GREATER THAT 101. * WEAR CHAS HOSE 20 HOURS PER DAY FOR 2 WEEKS. *DERMABOND Prineo- This is a mesh tape dressing that is covered with glue. It should remain in place until the incision is properly healed, usually 10-14 days. This dressing is designed to naturally slough off. You may trim the excess mesh tape as it peels off. Incision may be briefly wet in a shower. Dry immediately by blotting with a clean, dry towel. Do not bath or swim until instructed by your doctor. Do not scratch, rub, or pick at the dressing. Do not apply any topical ointments or lotions until dressing is completely removed and/or instructed by your doctor. There may be a small piece of suture material at one end of your incision. Do not pull or trim this. If it is bothersome or catching on clothing, you may cover it with a band-aid. FOLLOW UP VISIT: If appointment is not already scheduled: Please call [facility] to make a follow-up appointment for 2 weeks after your surgery at . Prescriptions: New celecoxib [Celebrex] 200 mg Capsule 200 mg PO BID PRN (Reason: pain and inflammation) Qty: 28 RF: 0 acetaminophen [Tylenol Extra Strength] 500 mg Tablet 1,000 mg PO Q8 PRN (Reason: pain and/or fever) Qty: 90 RF: 0 aspirin 325 mg Tablet,Delayed Release (Dr/Ec) 325 mg PO BID Qty: 56 RF: 0 oxycodone 5 mg Tablet 5 mg PO Q6H MDD 6 tabs PRN (Reason: pain) Qty: 30 RF: 0 sennosides [Senokot] 8.6 mg Tablet 17.2 mg PO HS PRN (Reason: constipation) Qty: 28 RF: 0 Continued pramipexole [Mirapex] 1 mg Tablet 1 mg PO QAM RF: 0 pramipexole [Mirapex] 1 mg Tablet 2 mg PO HS RF: 0 furosemide 40 mg Tablet 40 mg PO QAM RF: 0 alendronate [Fosamax] 70 mg Tablet 70 mg PO WK RF: 0 cyanocobalamin (vitamin B-12) [Vitamin B-12] 1,000 mcg Tablet 1,000 mcg PO QAM RF: 0 spironolactone 25 mg Tablet 25 mg PO QAM RF: 0 alprazolam [Xanax] 0.25 mg Tablet 0.25 mg PO BID RF: 0 lovastatin 20 mg Tablet 20 mg PO HS RF: 0 duloxetine [Cymbalta] 60 mg Capsule,Delayed Release(Dr/Ec) 60 mg PO HS RF: 0 Pro Air 1 puff inhalation UD PRN (Reason: COPD) RF: 0 Stand-Alone Forms: [facility], [facility]/Other Patient Handouts: Prediabetes, Diabetes Meal Planning Discharge Orders: Discharge Order (Routine); Ordered 02/06/19 Ordered By: Tom Barragan Admission Data Admit Date/Time: 02/05/19 14:23 Attending Provider: Tom Barragan Admit Provider: Tom Barragan Primary Care Provider: Tucker Morales Service: Surgical Services Other Interventions: Discharge Summary Assessment (RN) Last Done: 02/06/19 14:27 DC Date/Time DO NOT enter until pt leaves facility: 02/06/19 16:21
[2019-02-10] MEDS ORDERED: ALENDRONATE SODIUM 70 MG TAB PO SCH (06:30)
== END 2019-02-06 16:21 | disposition home health service (06) | DRG 470 ==
LOC: PAT 08:10 → 3E 14:23

== ENCOUNTER 2019-02-19 01:44 | Inpatient (IN) ==
[2019-02-20] MEDS ORDERED: ACETAMINOPHEN 325 MG TAB PO PRN (02:15)
[2019-02-20] MEDS ORDERED: ONDANSETRON INJ 2 MG/ML 2 ML VIAL IV PRN (02:21)
[2019-02-20 03:56] LABS: Eosinophils # (auto) 0.09 K/uL (0-0.5); Eosinophils % (auto) 0.8 %; Hematocrit (blood only) 35.4 % (37-47); Hemoglobin 12.4 g/dL (12.0-16.0); Immature Granulocytes # (auto) 0.03 K/uL (0.00-0.02); Immature Granulocytes % (auto) 0.3 %; Lymphocytes # (auto) 1.58 K/uL (1.2-3.4); Mean Corpuscular Volume 89.2 fL (80-100); Mean Platelet Volume 8.9 fL (7.4-10.4); Monocytes # (auto) 0.31 K/uL (0.11-0.59); Monocytes % (auto) 2.7 %; Neutrophils # (auto) 9.27 K/uL (1.4-6.5); Neutrophils % (auto) 82.2 %; Platelet Count 345 K/uL (130-400); RDW Coefficient of Variation 14.4 % (11.5-14.5); RDW Standard Deviation 47.4 fL (36.4-46.3); Red Blood Count 3.97 M/uL (4.2-5.4); White Blood Count 11.28 K/uL (4.8-10.8)
[2019-02-20] MEDS ORDERED: ALBUTEROL HFA 8 GM INHALER INH PRN (03:58)
[2019-02-20] MEDS ORDERED: ALPRAZolam 0.25 MG TABLET PO PRN (03:58)
[2019-02-20] MEDS ORDERED: SENNA 8.6 MG TAB PO PRN (03:58)
[2019-02-20] MEDS ORDERED: DEXAMETHASONE SOD PHOSPHATE 10 MG in SYRINGE 0 ML IV SCH (04:00)
[2019-02-20 04:09] LABS: Partial Thromboplastin Ratio 1.2; Partial Thromboplastin Time 31.6 Seconds (21.0-31.0); Prothrombin Time 10.6 Seconds (9.0-12.0)
[2019-02-20 04:13] LABS: Albumin Level 3.1 gm/dl (3.4-5.0); BUN Creatinine Ratio 23.4 (10-20); Calcium 8.4 mg/dl (8.5-10.1); Creatinine Clr Calc Pharmacy 87.8 ml/min; Est GFR (African American) 105.1; Est GFR (Non-African American) 90.7; Potassium 3.5 mmol/L (3.5-5.1)
--- NOTE | 2019-02-20 04:13 | History & Physical Report ---
Date of Service February 20, 2019 Assessment & Plan (1) Rash: 68-year-old female was transferred from [facility] (i.e. [facility]) (arriving here on 20 February 2019) for diffuse body rash and extremity swelling. Rash, bilateral hand swelling, purpura: Initial rash on the hands and feet, then on the face, then acutely worsening in the bilateral hands and right forearm. No history of the same. Denies fever or feeling of systemic illness. Denies respiratory or GI symptoms regarding an allergic reaction. Denies joint pains though limited movement of her wrists and fingers due to swelling. OSH thought this is related to Celebrex which she started two weeks ago, though no known sulfa allergy or previous intolerance to Lasix. Some concern for developing purpura, though no previous history of easy bleeding and coags at OSH were okay. - At OSH ED, afebrile, not tachycardic or tachypneic, rather normotensive, with a normal room SpO2. WBC 11. Platelets 359. INR 1. Lactate 1.5. Procalcitonin 0.18. Anion gap of 21. Three-view x-ray of the right hand read as diffuse soft tissue swelling over the metacarpals, no subcutaneous air, no acute fracture. - At OSH ED, was treated with Benadryl 50 mg IV and Mirapex 2 mg p.o. - Ordered some basic inflammatory labs. Will start on Decadron 10 mg q24h here. May need higher doses. Likely would benefit from an acute dermatology evaluation with consideration of skin biopsy. Left knee replacement: By report occurred about two weeks prior to admit. Patient saw her orthopedic surgeon on 20Aug and apparently has been progressing well. Ongoing medical issues: - Hypertension, hyperlipidemia, CAD, innominate artery stenosis: No known other stenosis. Reportedly monitored annually without recent changes. Continue home aspirin, spironolactone, and lovastatin. - Lower extremity edema: Patient denies known heart failure. Normally is on Lasix 40 mg daily. --- Hold home Lasix as a precaution. Switch to Bumex 1 mg daily. - COPD: Patient uses Pro Air as needed for seasonal allergies. --- Will do the same here as needed for shortness of breath. - Restless leg syndrome: Continue home Mirapex. - Multinodular goiter: Per patient, prior biopsies normal and never needed medication for this. - Idiopathic peripheral neuropathy, spinal stenosis, cervical spondylosis with myelopathy: Has a spinal cord stimulator in place. - Anxiety: Continue home Xanax, Cymbalta - Occasional GERD: Continue home Zantac as needed. Code status: Full code. Diet: Heart healthy. DVT prophy: Deferred systemic anticoagulation initially due to purpura. Deferred SCDs due to edema. Encourage frequent ambulation. PT/OT: Deferred. Disbo: Admitted to [facility]. (2) Bilateral hand swelling: (3) Purpura: (4) Status post left knee replacement: (5) Hypertension: (6) Hyperlipidemia: (7) CAD (coronary artery disease): (8) Innominate artery stenosis: (9) Bilateral lower extremity edema: (10) COPD (chronic obstructive pulmonary disease): (11) RLS (restless legs syndrome): (12) Multinodular goiter: (13) Idiopathic peripheral neuropathy: (14) Spinal stenosis: (15) Generalized anxiety disorder: (16) GERD (gastroesophageal reflux disease): History of Present Illness Primary Care Provider: Tucker Carmen 68-year-old female was transferred from [facility] (i.e. [facility]) overnight for further evaluation of a diffuse rash and the more recent development of swelling in the bilateral hands. Patient relates the following timeline: - Patient underwent a left total knee replacement about 2 weeks ago. At that time she was started on Celebrex. Otherwise there have been no interval or new medications added to her routine. As far she knows, surgery is gone very well and she has no current knee concerns. - This past Monday 17Aug she says that the bottom and sides of her feet felt itchy. - On Monday the same itchiness developed between the fingers of both hands. She also developed a rash around her left ear and right eye. - Earlier in the day yesterday 20Aug she had her routine follow-up with her orthopedic surgeon. Per his account, the knee is doing well. She noted that she had some mild swelling of her right hand and asked him what he thought of it. Per her report, he said that she may have an allergy to Celebrex and was advised to stop taking it as well as try Benadryl. - For the remainder of yesterday she has noticed the new onset of a blotchy rash over the right side of her chest and flank region. She also has noticed the quite acute worsening of swelling of her left hand as well as the development of swelling in her right hand and right forearm. She says she also developed some purplish discoloration on her hands in the same areas that were itchy. For this she was seen in the [facility] and then transferred here for further evaluation. There couple of her rings were cut off due to the swelling. - At present on the hospital [place], patient says that the swelling both of her hands has worsened. Has never had a rash or swelling like this before. She says that they are tender to touch and it is hard for her to move her fingers because of the swelling. She denies any focal joint pains including in her fingers, wrists, or elsewhere to include elbows/knees/feet. Denies any known recent fevers or feeling of systemic illness. Denies history of easy bruising or bleeding. Denies any difficulty breathing, speaking or swallowing, with neck movement, or associated nausea/vomiting/diarrhea or abdominal concerns. - Past medical history includes hypertension, hyperlipidemia, CAD, restless leg syndrome, carpal tunnel syndrome, thyroid nodules, idiopathic peripheral neuropathy, spinal stenosis, generalized anxiety disorder, cervical spondylosis with myelopathy, COPD, innominate artery stenosis, osteoarthritis, lower extremity edema - Past surgical history includes bilateral carpal tunnel surgery, toe surgery, appendectomy, lumbar disc arthroplasty, multiple lumbar surgeries, question of a iliac artery stent, spinal cord stimulator, REJI/BSO, incisional hernia repair. - Social history includes smoking 1/2 pack/day for 30 years. Denies alcohol or drug use. Allergies Allergy/AdvReac Type Severity Reaction Status Date / Time oxycodone Allergy Severe PRURITIS Verified 02/05/19 09:22 latex Allergy Unknown BURNING, Verified 02/05/19 09:22 PRURITIS Home Medications Home Medications Medication Instructions Recorded Confirmed Type Pro Air 1 puff INHALATION UD PRN 01/01/19 02/20/19 History alendronate [Fosamax] 70 mg PO WK 01/01/19 02/20/19 History alprazolam [Xanax] 0.25 mg PO BID 01/01/19 02/20/19 History cyanocobalamin (vitamin B-12) 1,000 mcg PO QAM 01/01/19 02/20/19 History [Vitamin B-12] duloxetine [Cymbalta] 60 mg PO HS 01/01/19 02/20/19 History furosemide 40 mg PO QAM 01/01/19 02/20/19 History lovastatin 20 mg PO HS 01/01/19 02/20/19 History pramipexole [Mirapex] 1 mg PO QAM 01/01/19 02/20/19 History pramipexole [Mirapex] 2 mg PO HS 01/01/19 02/20/19 History spironolactone 25 mg PO QAM 01/01/19 02/20/19 History acetaminophen [Tylenol Extra 1,000 mg PO Q8 PRN #90 tab 02/05/19 02/20/19 Rx Strength] aspirin 325 mg PO BID #56 tab 02/05/19 02/20/19 Rx celecoxib [Celebrex] 200 mg PO BID PRN #28 cap 02/05/19 02/20/19 Rx oxycodone 5 mg PO Q6H PRN #30 tab MDD 6 tabs 02/05/19 02/20/19 Rx sennosides [Senokot] 17.2 mg PO HS PRN #28 tab 02/05/19 02/20/19 Rx Past Med/Surg History Medical History Obesity CAD (coronary artery disease) non-obstructive CAD by 2011 cardiac cath Age related osteoporosis Anxiety COPD (chronic obstructive pulmonary disease) High cholesterol Restless leg syndrome Thyroid nodule under surveillance Surgical History History of ankle surgery left (2/2 crush injury) with multiple revisions History of arthroscopy of left knee History of cardiac cath 4+ years ago= non-obstructive CAD; no stents History of carpal tunnel surgery of left wrist History of carpal tunnel surgery of right wrist History of cholecystectomy History of colonoscopy History of hysterectomy History of lumbar fusion AND REVISION History of neck surgery CERVICAL SPINE FUSED History of toe surgery RIGHT HAMMER TOE AND BUNION REPAIR History of toe surgery left foot "nerve" surgery Status post insertion of spinal cord stimulator Patient will bring remote AM DOS/OR made aware Family History Mother Family history of lung cancer Social History Preferred Language: Maori Communication Ability: Effective Zinc Plate Grainer Required: No Beliefs That Will Affect Care: None marital status: Single Current Living Situation: Alone Other Information That Helps Us Care for You: No Feels Safe at Home: Yes Safety Concerns: Feels Safe At This Time Smoking Status: Current every day smoker Tobacco Type: cigarettes ; Cigarettes Per Day: 0.5 PPD x 30+ years ; Hx Alcohol Use: No Hx Substance Use: No Review of Systems Review of Systems: Constitutional: Denies fevers, chills, focal weakness Eyes: Denies any visual loss or diplopia ENT: Denies any ear/nose/throat pain or difficulty speaking or swallowing Respiratory: Denies any dyspnea, cough, hemoptysis Cardiovascular: Denies any chest pain or palpitations. Gastrointestinal: Denies any abdominal pain, nausea/vomiting/diarrhea Musculoskeletal: Positive bilateral hand pain. Denies joint pains. Skin: Positive rash on the right side of her body, purplish discoloration of the hands, and patient rash of the face. Neuro: Denies any headache, acute focal weakness or numbness, or difficulties with speech or swallow. Hematologic: Denies any easy bleeding or bruising Physical Exam Physical Exam: GENERAL: Awake, alert, well-appearing, pleasantly conversational, in no acute distress. HENT: Normocephalic, atraumatic. EYES: Normal conjunctiva. Sclera non-icteric. NECK: Inspection normal. Supple and full ROM. No nuchal rigidity. CARDIAC: +S1S2 RRR, no murmurs. RESPIRATORY: Clear to auscultation. No wheezes or rales. Normal respiratory effort. GI: +BS, soft, non-distended. No tenderness to palpation. No rebound or guarding. EXTREMITIES/SKIN: - The left hand dorsally is diffusely swollen and moderately tense. All of the digits are also swollen but not quite as severely. There are areas of purplish discoloration in some of the webspaces along with along the medial/lateral aspects of the fingers. The hand is mildly warm, no obvious breaks in the skin, and is tender over the dorsal surface. The palm and forearm seem generally spared. - The right dorsal hand and lesser-so forearm are similarly diffusely swollen and moderately tense. The skin appears very similar to the left hand as above. The right dorsal hand is warm and tender but the forearm is not. No obvious breaks in the skin. There is a firmer consistency to the skin of the right hand and forearm than the left. - Less than 2-second cap refill in all finger digits. Bilateral radial pulses 2+. - The plantar aspect of the left foot has a pinkish hue to it and is mildly tender. The left foot and lesser-so distal leal has a 1-2+ edema. - The right foot has a 1+ edema without the same noted pinkish hue. - There is a pinkish blotchy discoloration over the superior orbit of the right eye, bridge of the nose, and somewhat over the left forehead. There is no obvious bright red discoloration circumferentially around the right eye. The right eye has grossly normal movement. - There is an urticarial type rash in patches over the right axillary and flank region. This looks distinct from going discoloration on the hands but more similar to the discoloration on the face. - No gross difficulty with movement of the elbows, shoulders, or ankles. - There is a healing midline scar over the left anterior knee consistent with her recent TKA. There is a single area approximately 1 cm of focal erythema that is not warm, tender, or draining. NEURO: No gross neuro deficits. Results & Data Vital Signs (Past 12 Hours) Vital Signs Temp Pulse Resp BP Pulse Ox 02/20/19 02:11 37.1 C 72 14 142/83 H 96 Code Status & VTE Plan Code Status Full code VTE Prophylaxis Plan VTE Prophylaxis will be ordered: Yes Supervising Physician Co-Signing Physician Notes Attending addendum: I have physically seen this patient, have supervised the medical residents activities, and agree with the H&P unless as otherwise noted. Assessment and Plan: Rash bilateral upper extremities with bilateral hand swelling/face/abdomen and legs- Differential includes allergic reaction to Celebrex, furosemide versus vasculitis and other. Rash is tender in particular over her hands. Order labs to assess for inflammation. Give a dose of Decadron 10 mg IV now. Consult dermatology for their assessment. Patient is to hold to let us know if she has any issues with breathing, swallowing, any progression from present state. No suggestion of Holland-Lucien syndrome Status post left total knee arthroplasty- We will consult orthopedic surgery, appears to be unrelated to rash. Remaining orders and notations as noted. PG Care Time/CCT Total # of Minutes Spent Total Time Spent with Patient: Total time spent is greater than 50% in coordination of care (as documented) at patient's floor/unit and/or counseling patient: Resident Activity Tracking Resident Involvement: Resident Care Provided Care Provided: Adult Hospital Medicine
[2019-02-20 04:16] LABS: Albumin Globulin Ratio 0.9 (0.9-2); Bilirubin,Total 0.8 mg/dl (0.2-1); C Reactive Protein 14.9 mg/dl (0-0.29); Globulin 3.5 gm/dl (2.5-4.0); Total Protein 6.6 gm/dl (6.4-8.2)
[2019-02-20 06:12] LABS: Appearance Urine Cloudy (Clear); Bacteria Urine Automated 1+ (Negative); Bilirubin Urine Negative (Negative); Blood Urine Negative (Negative); Color Urine Yellow; Epithelial Cell Urine Auto >30 /lpf (0-5); Glucose Urine UA Negative (Negative); Ketones Urine Negative (Negative); Leukocyte Esterase Urine Trace (Negative); Nitrite Urine Negative (Negative); Protein Urine Negative (Negative); RBC Urine Automated 0-4 /hpf (0-4); Specific Gravity Urine 1.019 (1.000-1.030); Urobilinogen Urine Negative (Negative)
[2019-02-20] MEDS: FERROUS SULFATE 325 MG TAB PO SCH (09:22)
[2019-02-20] MEDS: CYANOCOBALAMIN 500 MCG TABLET (VITAMIN B-12) PO SCH (09:22)
[2019-02-20] MEDS: SPIRONOLACTONE 25 MG TAB PO SCH (09:22)
[2019-02-20] MEDS: PRAMIPEXOLE DIHYDROCHLO 0.5 MG TAB PO SCH (09:22)
[2019-02-20] MEDS: ASPIRIN 81 MG ECTAB PO SCH (09:22)
[2019-02-20] MEDS: BUMETANIDE 1 MG TAB PO SCH (09:22)
--- NOTE | 2019-02-20 13:12 | Dermatology Consultation ---
Date of Consultation February 20, 2019 Assessment & Plan (1) Drug eruption: Urticarial drug eruption with associated angioedema (primarily of the hands/forearm) - Most likely secondary to Celebrex given the timing of onset. Presentation is not c/w Holland-Lucien Syndrome (no prodrome, no mucosal involvement, wrong distribution of onset, no systemic involvement). Purpura on the areas of the hands is secondary to the acute onset of swelling in those areas + the fact that she was scratching these areas primarily as they were the most symptomatic. - Avoid future exposure to Celebrex. - At discharge, recommend switching to oral prednisone taper over 10 days (can be at the discretion of primary MD). - Patient may continue Benadryl 25mg every 6 hours as needed for itching, which should continue to diminish over the next few days. - Discussed with patient that her skin on the hands and right forearm will desquamate/peel as the swelling resolves. Recommend moisturizing with vaseline once this begins. Also discussed that entire reaction typically takes 2 weeks to resolve. Present on Admission?: Yes History of Present Illness Reason for Consultation: Possible drug reaction Requesting Physician: RUSTY Tucker Attending Physician: Thompson Camejo MD History of Present Illness Patient is a 68-year-old female admitted to [facility] early this morning for spreading rash on the trunk and right upper extremity swelling. Patient has a pertinent history of recent left knee replacement on 02/05/2019. She states that she started Celebrex 200 mg daily on 02/07/2019 as part of her postop protocol. She denies any other new medications or changes in her health. She reports that 4-5 days ago, on 02/16/2019, she started having some itching and slight swelling on the sides of her feet. She also noted a little bit of r edness in the areas. She tried using OTC hydrocortisone cream and Benadryl at home, but it was not helpful. Two days later, on 02/18/2019, she started developing similar symptoms in her hands (right > left). She reports acute onset of swelling in the right hand/forearm overnight. She also noted development of some hive-like lesions on her forehead and on abdomen. Yesterday she had follow up with her orthopedic surgeon who advised that she stop the Celebrex. At the time of admission she was given Decadron 10 mg IV. She states that some of the areas have started to recede overnight and are less itchy. She denies any pain in the skin aside from some slight discomfort on the right hand and forearm which she believes is related to the swelling. She denies any irritation in the eyes. No oral ulcerations, tongue swelling, lip swelling, or difficulty swallowing. She denies any difficulty with urination. No blood in her urine or stool. She denies experiencing any fevers or chills prior to onset of her rash. Allergies Allergy/AdvReac Type Severity Reaction Status Date / Time oxycodone Allergy Severe PRURITIS Verified 02/05/19 09:22 latex Allergy Unknown BURNING, Verified 02/05/19 09:22 PRURITIS Home Medications Home Medications Medication Instructions Recorded Confirmed Type Pro Air 1 puff INHALATION UD PRN 01/01/19 02/05/19 History alendronate [Fosamax] 70 mg PO WK 01/01/19 01/01/19 History alprazolam [Xanax] 0.25 mg PO BID 01/01/19 01/01/19 History cyanocobalamin (vitamin B-12) 1,000 mcg PO QAM 01/01/19 01/01/19 History [Vitamin B-12] duloxetine [Cymbalta] 60 mg PO HS 01/01/19 01/01/19 History furosemide 40 mg PO QAM 01/01/19 01/01/19 History lovastatin 20 mg PO HS 01/01/19 01/01/19 History pramipexole [Mirapex] 1 mg PO QAM 01/01/19 01/01/19 History pramipexole [Mirapex] 2 mg PO HS 01/01/19 01/01/19 History spironolactone 25 mg PO QAM 01/01/19 01/01/19 History acetaminophen [Tylenol Extra 1,000 mg PO Q8 PRN #90 tab 02/05/19 Rx Strength] aspirin 325 mg PO BID #56 tab 02/05/19 Rx celecoxib [Celebrex] 200 mg PO BID PRN #28 cap 02/05/19 Rx oxycodone 5 mg PO Q6H PRN #30 tab MDD 6 tabs 02/05/19 Rx sennosides [Senokot] 17.2 mg PO HS PRN #28 tab 02/05/19 Rx Patient History Medical History Obesity CAD (coronary artery disease) non-obstructive CAD by 2011 cardiac cath Age related osteoporosis Anxiety COPD (chronic obstructive pulmonary disease) High cholesterol Restless leg syndrome Thyroid nodule under surveillance Surgical History History of ankle surgery left (2/2 crush injury) with multiple revisions History of arthroscopy of left knee History of cardiac cath 4+ years ago= non-obstructive CAD; no stents History of carpal tunnel surgery of left wrist History of carpal tunnel surgery of right wrist History of cholecystectomy History of colonoscopy History of hysterectomy History of lumbar fusion AND REVISION History of neck surgery CERVICAL SPINE FUSED History of toe surgery RIGHT HAMMER TOE AND BUNION REPAIR History of toe surgery left foot "nerve" surgery Status post insertion of spinal cord stimulator Patient will bring remote AM DOS/OR made aware Family History Mother Family history of lung cancer Social History Preferred Language: Frisian Communication Ability: Effective Service Parts Coordinator Required: No Beliefs That Will Affect Care: None marital status: Current Living Situation: Alone Other Information That Helps Us Care for You: No Feels Safe at Home: Yes Safety Concerns: Feels Safe At This Time Smoking Status: Current every day smoker Tobacco Type: cigarettes ; Cigarettes Per Day: 0.5 PPD x 30+ years ; Hx Alcohol Use: No Hx Substance Use: No Review of Systems Review of Systems: Constitutional: Constitutional: no fever, no chills, no sweats and no fatigue Eyes: Eyes: no diplopia, no dry eyes and no eye pain Ear, Nose, Mouth, Throat: Ear, Nose, Mouth, Throat: no epistaxis, no bleeding gums, no sore throat, no hoarseness and no pain with swallowing no oral ulcers Respiratory: Respiratory: no cough and no dyspnea Cardiovascular: Cardiovascular: no chest pain Gastrointestinal: Gastrointestinal: + blood in stools; no abdominal pain, no nausea and no vomiting Genitourinary (Female): Genitourinary (Female): no difficulty urinating and no hematuria Integumentary: Integumentary: as per Subjective / HPI Neurologic: Neurologic: no headache(s) Hematologic / Lymphatic: Hematologic / Lymphatic: no easy bleeding Allergy / Immunological: Allergy / Immunological: no lip swelling and no tongue swelling Physical Exam Physical Exam: Dermatology Exam General: General Appearance: Well Developed, Well Nourished and In no actue distress Psych: Psych: Alert and Oriented Skin Type: Skin Type: 2 Scalp/Hair: Scalp/Hair: No abnormalities noted Face: Details: fading, slightly indurated urticarial plaques on the right forehead and left cheek Eyelids/Ocular Mucosa: Eyelids/Ocular Mucosa: No abnormalities noted Lips/Oral Mucosa: Lips/Teeth/Gums: No abnormalities noted Neck: Neck: No abnormalities noted Right Lower Extremity: Details: pink, urticarial patches/thin plaques on the medial thigh Left Lower Extremity: Details: pink, urticarial patches/thin plaques on the medial thigh/posterior thigh Back: Back: No abnormalities noted Right Upper Extremity: Details: pink, urticarial patches/thin plaques on the posterior upper arm edematous plaques with associated edema bulla and purpura on the dorsal hand/forearm Left Upper Extremity: Details: edematous plaque with associated purpura on the dorsal hand Chest/Breast/Axillae: Chest/Breast/Axillae: No abnormalities noted Abdomen: Details: pink, urticarial patches/thin plaques on the abdomen, right flank Nails: Nails: No abnormality noted. Lymph Nodes: Lymphatics: no head/neck/axillary lymphadenopathy Results & Data Vital Signs (Past 12 Hours) Vital Signs Temp Pulse Pulse Resp BP Pulse Ox 02/20/19 07:45 37.1 C 87 14 114/70 91 02/20/19 02:11 37.1 C 72 14 142/83 H 96 Laboratory Results 02/06/19 02/06/19 02/06/19 Range/Units 06:54 06:54 06:54 WBC 15.43 H (4.8-10.8) K/uL RBC 3.82 L (4.2-5.4) M/uL Hgb 11.5 L (12.0-16.0) g/dL Hct 35.5 L (37-47) % MCV 92.9 (80-100) fL MCH 30.1 (25-34) pg MCHC 32.4 (32-36) g/dL RDW Std Deviation 51.9 H (36.4-46.3) fL RDW Coeff of Rosa 15.2 H (11.5-14.5) % Plt Count 245 (130-400) K/uL MPV 9.6 (7.4-10.4) fL Sodium 137 (136-145) mmol/L Potassium 3.8 (3.5-5.1) mmol/L Chloride 104 (98-107) mmol/L Carbon Dioxide 27 (21-32) mmol/L Anion Gap 6.0 (3-11) BUN 22 H (7-18) mg/dl Creatinine 0.96 (0.6-1.2) mg/dl Est Cr Clr Drug Dosing 61.0 ml/min Est GFR ( Amer) 71.4 Est GFR (Non-Af Amer) 61.6 BUN/Creatinine Ratio 23.0 H (10-20) Glucose 160 H (70-99) mg/dl Calcium 8.2 L (8.5-10.1) mg/dl Hepatitis C Ab Screen Neg (Neg) PG Care Time/CCT Total # of Minutes Spent Total Time Spent with Patient: Total time spent is greater than 50% in coordination of care (as documented) at patient's floor/unit and/or counseling patient:
--- NOTE | 2019-02-20 17:16 | Hospitalist Progress Note ---
Date of Service February 20, 2019 Assessment & Plan (1) Drug eruption: 68-year-old female was transferred from [facility] (i.e. OSH) (arriving here on 20 February 2019) for diffuse body rash and extremity swelling. Rash, bilateral hand swelling, purpura: Initial rash on the hands and feet, then on the face, then acutely worsening in the bilateral hands and right forearm. [facility] thought this is related to Celebrex which she started two weeks ago. Some concern for developing purpura, though no previous history of easy bleeding and coags at OSH were okay. - At OSH ED, afebrile, not tachycardic or tachypneic, rather normotensive, with a normal room SpO2. WBC 11. Platelets 359. INR 1. Lactate 1.5. Procalcitonin 0.18. Anion gap of 21. Three-view x-ray of the right hand read as diffuse soft tissue swelling over the metacarpals, no subcutaneous air, no acute fracture. - At OSH ED, was treated with Benadryl 50 mg IV and Mirapex 2 mg p.o. - Ordered some basic inflammatory labs. - increased decadron to 10 mg bid with good effect. - Consulted dermatology: no concern for SJS given symptom progression and lack of mucosal involvement - recommend 10 day steroid taper at discharge. Recommend moisturizing with vaseline once peelin/desquamation begins. Entire reaction typically takes 2 weeks to resolve. (2) GERD (gastroesophageal reflux disease): (3) Status post left knee replacement: Left knee replacement: By report occurred about two weeks prior to admit. Patient saw her orthopedic surgeon on 20Aug and apparently has been progressing well. (4) Coronary artery disease: Continue home aspirin, spironolactone, and lovastatin. (5) Edema: chronic lower extremity - lasix held and switched to Bumex on admission out of concern for sulfa reaction (6) COPD (chronic obstructive pulmonary disease): continue ProAir (7) RLS (restless legs syndrome): continue Mirapex (8) Spinal stenosis: - Idiopathic peripheral neuropathy, spinal stenosis, cervical spondylosis with myelopathy: Has a spinal cord stimulator in place. (9) Anxiety: Continue Xanax and Cymbalta (10) DVT prophylaxis: Deferred systemic anticoagulation initially due to purpura. Deferred SCDs due to edema. Encourage frequent ambulation. Subjective Ms. Sutherland continues to have edema and purpura in her hands. Denies any mucosal involvement - no difficulty swallowing, changes in bowels or bladder, no labial/vulvar irritation, no sob. She has not had significant change in her symptoms since she arrived. Review of Systems Review of Systems: All systems reviewed & are unremarkable except as noted in HPI & below Physical Exam Physical Exam: General: no distress Eyes: normal inspection, PERLL Respiratory: chest non tender, clear to auscultation, normal breath sounds, no respiratory distress, no accessory muscle use Cardiac: regular rate and rhythm, no rub or gallop, no murmur, no edema, no jvd GI/: active bowel sounds, no abd pain or tenderness, soft, non distended Extremities: normal range of motion, normal strength, non tender Neuro/Psych: alert and oriented x 3, normal mood and affect Skin: normal color, dry Results & Data Vital Signs (Past 12 Hours) Vital Signs Temp Pulse Pulse Resp BP Pulse Ox 02/20/19 15:44 37.0 C 89 18 104/60 94 02/20/19 07:45 37.1 C 87 14 114/70 91 PG Care Time/CCT Total # of Minutes Spent Total Time Spent with Patient: Total time spent is greater than 50% in coordination of care (as documented) at patient's floor/unit and/or counseling patient:
[2019-02-20] MEDS: DEXAMETHASONE SOD PHOSPHATE 10 MG in SYRINGE 0 ML IV SCH (20:37)
[2019-02-20] MEDS ORDERED: LOVASTATIN 20 MG TAB PO SCH (21:00)
[2019-02-20] MEDS ORDERED: PRAMIPEXOLE DIHYDROCHLO 0.5 MG TAB PO SCH (21:00)
[2019-02-20] MEDS ORDERED: DULOXETINE HCL 60 MG CAP PO SCH (21:00)
[2019-02-21] MEDS: DEXAMETHASONE SOD PHOSPHATE 10 MG in SYRINGE 0 ML IV SCH (08:21)
[2019-02-21] MEDS: CYANOCOBALAMIN 500 MCG TABLET (VITAMIN B-12) PO SCH (08:21)
[2019-02-21] MEDS: ASPIRIN 81 MG ECTAB PO SCH (08:22)
[2019-02-21] MEDS: SPIRONOLACTONE 25 MG TAB PO SCH (08:22)
[2019-02-21] MEDS: BUMETANIDE 1 MG TAB PO SCH (08:22)
[2019-02-21] MEDS: PRAMIPEXOLE DIHYDROCHLO 0.5 MG TAB PO SCH (08:22)
[2019-02-21] MEDS: FERROUS SULFATE 325 MG TAB PO SCH (08:22)
[2019-02-21 09:21] LABS: Basophils # (auto) 0.01 K/uL (0-0.2); Basophils % (auto) 0.1 %; Hemoglobin 11.3 g/dL (12.0-16.0); Immature Granulocytes # (auto) 0.06 K/uL (0.00-0.02); Immature Granulocytes % (auto) 0.4 %; Lymphocytes # (auto) 1.33 K/uL (1.2-3.4); Lymphocytes % (auto) 9.2 %; Mean Corpuscular Hgb Conc 33.2 g/dL (32-36); Mean Corpuscular Volume 90.7 fL (80-100); Mean Platelet Volume 9.1 fL (7.4-10.4); Monocytes # (auto) 0.38 K/uL (0.11-0.59); Monocytes % (auto) 2.6 %; Neutrophils # (auto) 12.64 K/uL (1.4-6.5); Neutrophils % (auto) 87.7 %; Platelet Count 358 K/uL (130-400); RDW Coefficient of Variation 14.5 % (11.5-14.5); RDW Standard Deviation 48.1 fL (36.4-46.3); Red Blood Count 3.75 M/uL (4.2-5.4); White Blood Count 14.42 K/uL (4.8-10.8)
--- NOTE | 2019-02-21 11:45 | Discharge Summary ---
Date of Service February 21, 2019 Admission HPI Per Admitting Provider 68-year-old female was transferred from [facility] (i.e. [facility]) overnight for further evaluation of a diffuse rash and the more recent development of swelling in the bilateral hands. Patient relates the following timeline: - Patient underwent a left total knee replacement about 2 weeks ago. At that time she was started on Celebrex. Otherwise there have been no interval or new medications added to her routine. As far she knows, surgery is gone very well and she has no current knee concerns. - This past Monday 17Aug she says that the bottom and sides of her feet felt itchy. - On Monday the same itchiness developed between the fingers of both hands. She also developed a rash around her left ear and right eye. - Earlier in the day yesterday Au she had her routine follow-up with her or hopedi surgeon. Per his account, the knee is doing well. She noted that she had some mild swelling of her right hand and asked him what he thought of it. Per her report, he said that she may have an allergy to Celebrex and was advised to stop taking it as well as try Benadryl. - For the remainder of yesterday she has noticed the new onset of a blotchy rash over the right side of her chest and flank region. She also has noticed the quite acute worsening of swelling of her left hand as well as the development of swelling in her right hand and right forearm. She says she also developed some purplish discoloration on her hands in the same areas that were itchy. For this she was seen in the [facility] ED and then transferred here for further evaluation. There couple of her rings were cut off due to the swelling. - At present on the hospital [place], patient says that the swelling both of her hands has worsened. Has never had a rash or swelling like this before. She says that they are tender to touch and it is hard for her to move her fingers because of the swelling. She denies any focal joint pains including in her fingers, wrists, or elsewhere to include elbows/knees/feet. Denies any known recent fevers or feeling of systemic illness. Denies history of easy bruising or bleeding. Denies any difficulty breathing, speaking or swallowing, with neck movement, or associated nausea/vomiting/diarrhea or abdominal concerns. - Past medical history includes hypertension, hyperlipidemia, CAD, restless leg syndrome, carpal tunnel syndrome, thyroid nodules, idiopathic peripheral neuropa thy, spinal stenosis, generalized anxiety disorder, cervical spondylosis with myelopathy, COPD, innominate artery stenosis, osteoarthritis, lower extremity edema - Past surgical history includes bilateral carpal tunnel surgery, toe surgery, appendectomy, lumbar disc arthroplasty, multiple lumbar surgeries, question of a iliac artery stent, spinal cord stimulator, REJI/BSO, incisional hernia repair. - Social history includes smoking 1/2 pack/day for 30 years. Denies alcohol or drug use. Principal Diagnosis drug eruption Discharge Exam Constitutional WD/WN, vitals as above Respiratory normal respiratory effort, lungs clear to auscultation Cardiovascular RRR, no murmur, no edema Gastrointestinal (Abdomen) Inspection/Auscultation: abdomen normal to inspection and normal bowel sounds; abdomen not distended Percussion/Palpation: abdomen soft; abdomen nontender Musculoskeletal no cyanosis or clubbing, extremities motor strength 5/5 Skin edema of hands and feet vastly improved, ecchymosis on hands stable, some peeling of skin around wrists. Discharge Data Allergies Allergy/AdvReac Type Severity Reaction Status Date / Time celecoxib [From Celebrex] Allergy Severe Verified 02/21/19 11:44 oxycodone Allergy Severe PRURITIS Verified 02/05/19 09:22 latex Allergy Unknown BURNING, Verified 02/05/19 09:22 PRURITIS Consultations 02/20/19 17:05 Consult Dermatology Routine Hospital Course (1) Drug eruption: 68-year-old female was transferred from [facility] (i.e. OS) (arriving here on 20 February 2019) for diffuse body rash and extremity swelling. Rash, bilateral hand swelling, purpura: Initial rash on the hands and feet, then on the face, then acutely worsening in the bilateral hands and right forearm. [facility] thought this is related to Celebrex which she started two weeks ago. Some concern for developing purpura, though no previous history of easy bleeding and coags at OSH were okay. - At OSH ED, afebrile, not tachycardic or tachypneic, rather normotensive, with a normal room SpO2. WBC 11. Platelets 359. INR 1. Lactate 1.5. Procalcitonin 0.18. Anion gap of 21. Three-view x-ray of the right hand read as diffuse soft tissue swelling over the metacarpals, no subcutaneous air, no acute fracture. - At OSH ED, was treated with Benadryl 50 mg IV and Mirapex 2 mg p.o. - increased decadron to 10 mg bid with good effect. - Consulted dermatology: no concern for SJS given symptom progression and lack of mucosal involvement - recommend 10 day steroid taper at discharge. Recommend moisturizing with vaseline once peeling/desquamation begins. Entire reaction typically takes 2 weeks to resolve. (2) GERD (gastroesophageal reflux disease): ranitidine as needed (3) Status post left knee replacement: Left knee replacement: By report occurred about two weeks prior to admit. Patient saw her orthopedic surgeon on Jan and apparently has been progressing well. (4) Coronary artery disease: Continue home aspirin, spironolactone, and lovastatin. (5) Edema: chronic lower extremity - lasix held and switched to Bumex on admission out of concern for sulfa reaction - will return to furosemide for home (6) COPD (chronic obstructive pulmonary disease): continue ProAir (7) RLS (restless legs syndrome): continue Mirapex (8) Spinal stenosis: - Idiopathic peripheral neuropathy, spinal stenosis, cervical spondylosis with myelopathy: Has a spinal cord stimulator in place. (9) Anxiety: Continue Xanax and Cymbalta (10) DVT prophylaxis: Deferred systemic anticoagulation initially due to purpura. Deferred SCDs due to edema. Encourage frequent ambulation. Total Time Total Time Spent Total Time Spent (In Minutes): greater than 30 minutes Discharge Plan Discharge Items Patient Disposition: Home - Self-Care Reason For Visit: VASCULITIS Discharge Diagnosis: Drug reaction Discharge Goals: Decrease discomfort Activity: Resume your previous activity Non-emergency contact: Primary Care Provider Call non-emergency contact if: you have any medication questions Follow-up/Referrals: Tucker Morales [Primary Care Provider] - Diet: Regular Addtl Provider Instructions: Please see your primary care provider next week You will taper your prednisone as follows: 60mg x 2 days, 40mg x 3 days, 20mg x 3 days, 10mg x 3 days You can use Vaseline on the areas that are peeling to help keep the skin moist Prescriptions: New prednisone 20 mg tablet 20 mg PO DAILY Qty: 16 RF: 0 Continued pramipexole [Mirapex] 1 mg Tablet 1 mg PO QAM RF: 0 pramipexole [Mirapex] 1 mg Tablet 2 mg PO HS RF: 0 furosemide 40 mg Tablet 40 mg PO QAM RF: 0 alendronate [Fosamax] 70 mg Tablet 70 mg PO WK RF: 0 cyanocobalamin (vitamin B-12) [Vitamin B-12] 1,000 mcg Tablet 1,000 mcg PO QAM RF: 0 spironolactone 25 mg Tablet 25 mg PO QAM RF: 0 alprazolam [Xanax] 0.25 mg Tablet 0.25 mg PO BID RF: 0 lovastatin 20 mg Tablet 20 mg PO HS RF: 0 duloxetine [Cymbalta] 60 mg Capsule,Delayed Release(Dr/Ec) 60 mg PO HS RF: 0 Pro Air 1 puff inhalation UD PRN (Reason: COPD) RF: 0 acetaminophen [Tylenol Extra Strength] 500 mg Tablet 1,000 mg PO Q8 PRN (Reason: pain and/or fever) Qty: 90 RF: 0 aspirin 325 mg Tablet,Delayed Release (Dr/Ec) 325 mg PO BID Qty: 56 RF: 0 oxycodone 5 mg Tablet 5 mg PO Q6H MDD 6 tabs PRN (Reason: pain) Qty: 30 RF: 0 sennosides [Senokot] 8.6 mg Tablet 17.2 mg PO HS PRN (Reason: constipation) Qty: 28 RF: 0 Discontinued celecoxib [Celebrex] 200 mg Capsule 200 mg PO BID PRN (Reason: pain and inflammation) Qty: 28 RF: 0 Stand-Alone Forms: [facility]/Other Patient Handouts: DVT Prevent Discharge Orders: Discharge Order (Routine); Ordered 02/21/19 Ordered By: Tosha Lassiter Admission Data Admit Date/Time: 02/20/19 01:55 Attending Provider: Thompson Camejo Admit Provider: Erick Mathias Primary Care Provider: Tucker Morales Other Providers: Sae Paul Service: Surgical Services Other Interventions: Discharge Summary Assessment (RN) Last Done: 02/21/19 12:03
== END 2019-02-21 13:12 | disposition home or self-care (01) | DRG 607 ==
LOC: 3W 02-20 01:55 → SUATTDRO 02-20 01:55